=== PATIENT | female | born 1960 | race Caucasian/White ===

== ENCOUNTER → 2016-06-18 | Outpatient (CLI) | payer OTHER ==
[~2016-06-18] MED LIST: ATEN50TA2 PO; CHLO0.124 MT; FLUC150T PO
[2016-06-18 11:10] LABS: BASO % 0.7 % (0.0-1.0); EOS # 0.1 K/mm3 (0.0-0.50); EOS % 3.7 % (0.0-3.0); LYMPH % 29.2 % (24.0-44.0); MEAN CORPUSCULAR HEMOGLOBIN 29.1 pg (27.0-33.0); MEAN CORPUSCULAR HGB CONC 33.7 g/dl (32.0-36.5); MEAN CORPUSCULAR VOLUME 86.4 fl (80.0-96.0); MONO # 0.2 K/mm3 (0.0-0.8); MONO % 6.2 % (0.0-5.0); NEUTROPHILS # 1.9 K/mm3 (1.8-7.7); NEUTROPHILS % 57.1 % (36.0-66.0); RED CELL DISTRIBUTION WIDTH 12.6 % (11.5-14.5); WHITE BLOOD COUNT 3.4 K/mm3 (4.0-10.0)
[2016-06-18 11:31] LABS: ALBUMIN 3.8 GM/DL (3.2-5.2); ALBUMIN/GLOBULIN RATIO 1.06 (1.00-1.93); ALKALINE PHOSPHATASE 74 U/L (45-117); ALT/SGPT 29 U/L (12-78); ANION GAP 8 MEQ/L (8-16); AST/SGOT 21 U/L (15-37); BILIRUBIN,TOTAL 0.7 MG/DL (0.2-1.0); BLOOD UREA NITROGEN 16 MG/DL (7-18); CALCIUM LEVEL 9.1 MG/DL (8.5-10.1); CARBON DIOXIDE LEVEL 30 MEQ/L (21-32); CHLORIDE LEVEL 103 MEQ/L (98-107); CHOLESTEROL LEVEL 191 MG/DL (<200); CREATININE FOR GFR 0.89 MG/DL (0.55-1.02); GLOMERULAR FILTRATION RATE > 60.0 (>51); GLUCOSE, FASTING 90 MG/DL (70-105); POTASSIUM SERUM 4.3 MEQ/L (3.5-5.1); SODIUM LEVEL 141 MEQ/L (136-145); TOTAL PROTEIN 7.4 GM/DL (6.4-8.2); TRIGLYCERIDES LEVEL 70 MG/DL (<150)
== END ==
LOC: M LAB 10:37
PROVIDERS: ATTEND Nurse Practitioner Adult Health
DX: Z51.81 Encounter for therapeutic drug level monitoring (principal); Z79.899 Other long term (current) drug therapy; E55.9 Vitamin D deficiency, unspecified; I97.3 Postprocedural hypertension

== ENCOUNTER → 2016-06-23 | Outpatient (CLI) | payer OTHER ==
--- NOTE | 2016-06-23 12:30 | REPMRS ---
Patient History The patient states she had a clinical breast exam in 05/2016. Patient is postmenopausal and had first child at age 29. Family history of prostate cancer in father at age 50 or over. Took hormonal contraceptives for 10 years. Digital Woman Screen Mammo: June 23, 2016 - Exam #: [id number] Bilateral CC and MLO view(s) were taken. Technologist: Hilary Ghosh, Technologist Prior study comparison: June 17, 2015, digital woman screen mammo performed at [facility]. June 16, 2014, digital woman screen mammo performed at [facility] [place] [facility]. August 24, 2011, bilateral bilat screen digital mammo, performed at [facility] ([facility]). FINDINGS: There are scattered fibroglandular densities. There has been no change in the appearance of the mammogram from the prior studies. There is a mild amount of scattered fibroglandular density which is fairly symmetric. There is no interval development of dominant mass, architectural distortion, or clustered microcalcification suggestive of malignancy. ASSESSMENT: BI-RADS/ACR category 1 mammogram. Negative. Recommendation Routine screening mammogram in 1 year (for women over age 40). This mammogram was interpreted with the aid of an FDA-approved computer-aided dectection system. Electronically Signed By: Fermin Rosales MD 06/23/16 [id number]
== END ==
LOC: M WHC 09:59
PROVIDERS: ATTEND Obstetrics & Gynecology
DX: Z12.31 Encounter for screening mammogram for malignant neoplasm of breast (principal); Z79.3 Long term (current) use of hormonal contraceptives

== ENCOUNTER → 2016-09-09 | Outpatient (REF) | payer OTHER | LOC: M LAB REF 15:41 | PROVIDERS: ATTEND Physician Assistant | DX: J10.1 Influenza due to other identified influenza virus with other respiratory manifestations (principal) ==

== ENCOUNTER → 2017-06-23 | Outpatient (CLI) | payer OTHER | LOC: M WHC 11:13 | DX: Z12.39 Encounter for other screening for malignant neoplasm of breast (principal) | CPT/HCPCS: 77067 ==

== ENCOUNTER 2018-06-16 08:05 | Emergency (ER) | payer OTHER ==
[~2018-06-16] VITALS: Ht 167.6 cm; Wt 230.0 kg
[2018-06-16 09:12] LABS: BASO % 0.6 % (0.0-1.0); EOS % 0.6 % (0.0-3.0); HEMATOCRIT 39.9 % (36.0-47.0); HEMOGLOBIN 13.1 g/dl (12.0-15.5); LYMPH # 0.8 10^3/uL (1.5-4.5); LYMPH % 17.5 % (24.0-44.0); MEAN CORPUSCULAR HEMOGLOBIN 29.3 pg (27.0-33.0); MEAN CORPUSCULAR HGB CONC 32.8 g/dl (32.0-36.5); MEAN CORPUSCULAR VOLUME 89.3 fl (80.0-96.0); MONO # 0.2 10^3/uL (0.0-0.8); MONO % 5.1 % (0.0-5.0); NEUTROPHILS # 3.6 10^3/uL (1.8-7.7); NEUTROPHILS % 75.8 % (36.0-66.0); PLATELET COUNT, AUTOMATED 252 10^3/uL (150-450); RED BLOOD COUNT 4.47 10^6/uL (4.00-5.40); WHITE BLOOD COUNT 4.7 10^3/uL (4.0-10.0)
[2018-06-16 09:33] LABS: ALBUMIN 3.8 GM/DL (3.2-5.2); ALT/SGPT 32 U/L (12-78); AMYLASE 35 U/L (25-115); BILIRUBIN,TOTAL 0.5 MG/DL (0.2-1.0); BLOOD UREA NITROGEN 12 MG/DL (7-18); CARBON DIOXIDE LEVEL 26 MEQ/L (21-32); CHLORIDE LEVEL 107 MEQ/L (98-107); CREATININE FOR GFR 0.77 MG/DL (0.55-1.30); GAMMA GLUTAMYLTRANSPEPTIDASE 61 U/L (5-55); GLOMERULAR FILTRATION RATE > 60.0 (>45); GLUCOSE, FASTING 99 MG/DL (70-100); LIPASE 76 U/L (73-393); POTASSIUM SERUM 3.7 MEQ/L (3.5-5.1); SODIUM LEVEL 141 MEQ/L (136-145); TOTAL PROTEIN 7.2 GM/DL (6.4-8.2)
[2018-06-16] MEDS ORDERED: DICY20TA11 PO (09:52)
[2018-06-16] MEDS ORDERED: SIME80TA PO (09:52)
[2018-06-16 10:11] VITALS: BP 159/89
== END 2018-06-16 10:11 | disposition home or self-care (01) ==
LOC: M ED 08:05
DX: R10.30 Lower abdominal pain, unspecified (principal); R14.3 Flatulence; I10 Essential (primary) hypertension; Z79.899 Other long term (current) drug therapy

== ENCOUNTER → 2018-06-27 | Outpatient (CLI) | payer OTHER ==
[~2018-06-27] MED LIST changes: +DICY20TA11 PO; +SIME80TA PO
--- NOTE | 2018-06-27 12:16 | REP ---
BILATERAL MAMMOGRAM WITH 3D TOMOSYNTHESIS: Bilateral mammogram performed with 3D tomosynthesis. Comparison is made with a prior study of . Tyrer-zick lifetime risk of breast cancer 9.7%. Mild scattered fibroglandular tissue is again seen bilaterally. There does appear to be a new well circumscribed nodule in the anterior right breast, upper outer quadrant, measuring about 9 mm in maximum diameter. A similar appearing, well circumscribed nodule is seen in the anterior left breast at about 6-o'clock position measuring about 7 mm in maximum diameter. No other mass or clustered microcalcifications are seen. IMPRESSION: A well-circumscribed nodule is seen in each breast anteriorly, not seen on prior studies. Recommend bilateral spot compression views and ultrasound to further evaluate. BIRADS 0: BI-RADS/ACR category 0 mammogram, Incomplete. Need additional imaging evaluation and/or prior mammograms for comparison. This mammogram was interpreted with the aid of an FDA-approved computer-aided detection system. A. Negative x-ray reports should not delay biopsy if a dominant or clinically suspicious mass is present. B. Four to eight percent of cancers are not identified by x-ray. C. Adenosis and dense breasts may obscure an underlying neoplasm. The patient states she/he had a clinical breast exam in May 2018. The patient letter being requested is M0
== END ==
LOC: M WHC 10:28
PROVIDERS: ATTEND Obstetrics & Gynecology
DX: Z12.31 Encounter for screening mammogram for malignant neoplasm of breast (principal); R92.8 Other abnormal and inconclusive findings on diagnostic imaging of breast

== ENCOUNTER → 2018-06-29 | Outpatient (CLI) | payer OTHER ==
--- NOTE | 2018-06-29 12:06 | REP ---
BILATERAL DIAGNOSTIC MAMMOGRAM WITH BILATERAL BREAST ULTRASOUND: Bilateral spot compression views performed and correlated with recent mammogram of 06/27/2018. These confirm the presence of a well circumscribed nodule in the right breast at about the 9 o'clock position measuring about 9 mm in maximum diameter, and another well circumscribed nodule in the left breast at about 6 o'clock meauring approximately 7 mm in maximum diameter. Real-time sonographic evaluation of the bilateral breasts performed. In the right breast at 3 o'clock there is a cyst corresponding to the mammographic abnormality measuring 8 x 4 x 6 mm. At 10 o'clock there is a tiny intramammary lymph node 4 x 3 x 5 mm. In the left breast at 6 o'clock there is a cyst measuring 6 mm in maximum diameter. IMPRESSION: BIRADS 2: BI-RADS/ACR category 2 mammogram. Benign Findings. Well circumscribed nodule confirmed in each breast as discussed in detail above. Both of these correspond to benign cysts by ultrasound. Recommend followup mammogram in 1 year. The patient letter being requested is M1. Electronically Signed by Umberto Crooks MD 06/29/2018 12:27 P
== END ==
LOC: M RAD 10:30
PROVIDERS: ATTEND Obstetrics & Gynecology
DX: R92.2 Inconclusive mammogram (principal)

== ENCOUNTER → 2018-07-04 | Outpatient (CLI) | payer OTHER ==
--- NOTE | 2018-07-04 18:44 | REP ---
Upper GI air contrast The procedure was performed under the direct supervision of Dr. Rosales. The images were reviewed with Dr. Rosales The stereo equipment repairer film shows no organomegaly or pathological masses. The intestinal gas pattern is non-specific. Liquid barium and gas producing crystals were given in the erect position as well as liquid barium in the prone oblique position in order to perform a double contrast upper GI examination. The oral and pharyngeal stages of deglutition are unremarkable. During esophageal transport there are tertiary waves demonstrated. There is no esophagitis stricture mucosal ring or hiatal hernia. There is gastroesophageal reflux demonstrated to above the level of the [place]. The stomach frenhc are normally outlined . The rugal folds are smooth and regular. There is no gastritis neoplasm or ulcer disease. The duodenal french are normally outlined . The mucosal folds are smooth and regular. There is no duodenitis pancreatitis peptic ulcer disease or neoplasm. The visualized portion of the proximal small bowel appears normal in course and caliber. Impression: 1. Tertiary waves. 2. There is gastroesophageal reflux demonstrated to above the level of the [place]. 0.5 minutes of fluoro time was utilized for this procedure. Reviewed by YADY Win 07/04/2018 04:49 P Electronically Signed by Jose F Rosales MD 07/04/2018 06:35 P
--- NOTE | 2018-07-04 20:01 | REP ---
Clinical: Chronic cholecystitis. Technique: Real time lieberman scale ultrasound examination using curved array transducer. Findings: Gallbladder demonstrates tumefactive sludge without wall thickening, pericholecystic fluid, or sonographic Bruner's sign. No biliary ductal dilatation is appreciated and the common bile duct measures 4.0 mm diameter. Liver and pancreas are normal in contour, size, echogenicity without focal hepatic or pancreatic lesion identified. Right kidney is normal in reniform shape without hydronephrosis and measures 10.1 x 4.4 x 4.3 cm. No ascites. Impression: 1. Cholelithiasis with tumefactive sludge. No current sonographic evidence to suggest acute cholecystitis. Electronically Signed by Bc Calles MD 07/04/2018 07:53 P
== END ==
LOC: M RAD 10:15
PROVIDERS: ATTEND Nurse Practitioner Adult Health
DX: K81.1 Chronic cholecystitis (principal); K21.9 Gastro-esophageal reflux disease without esophagitis

== ENCOUNTER → 2018-07-04 | Outpatient (CLI) | payer OTHER ==
[~2018-07-04] MED LIST changes: +CALC1TAB26 PO; +E-Z-GAS II EFFERVESCENT PACKET (SODIUM BICARB./CITRIC ACID/SIMETHICONE) As Ordered ONE; +E-Z-HD 98% w/w 340GM SUSP BTL As Ordered ONE; +E-Z-PAQUE 96% w/w SUSP 176GM BTL As Ordered ONE; +MULTCAP PO; +OMEG1CAP16 PO; +VITA1TAB23 PO
== END ==
LOC: M RAD 10:30
PROVIDERS: ATTEND Physician Assistant Medical
DX: R10.13 Epigastric pain (principal)

== ENCOUNTER → 2018-07-04 | Outpatient (CLI) | payer OTHER ==
[~2018-07-04] MED LIST changes: -CALC1TAB26 PO; -E-Z-GAS II EFFERVESCENT PACKET (SODIUM BICARB./CITRIC ACID/SIMETHICONE) As Ordered ONE; -E-Z-HD 98% w/w 340GM SUSP BTL As Ordered ONE; -E-Z-PAQUE 96% w/w SUSP 176GM BTL As Ordered ONE; -MULTCAP PO; -OMEG1CAP16 PO; -VITA1TAB23 PO
== END ==
LOC: M RAD 10:03
PROVIDERS: ATTEND Physician Assistant Medical
DX: R10.13 Epigastric pain (principal)

== ENCOUNTER → 2018-08-07 | Outpatient (CLI) | payer OTHER ==
[~2018-08-07] MED LIST changes: +CALC1TAB26 PO; +MULTCAP PO; +OMEG1CAP16 PO; +VITA1TAB23 PO
--- NOTE | 2018-08-08 04:07 | REP ---
Clinical: Preoperative assessment . Comparison: None . Technique: PA and lateral. Findings: The mediastinum and cardiac silhouette are normal. Airway is patent and midline. The lung robles suggest emphysematous changes without acute consolidation, effusion, or pneumothorax. The skeletal structures are intact and normal. Impression: 1. No acute cardiopulmonary process. Electronically Signed by Bc Calles MD 08/08/2018 04:00 A
== END ==
LOC: M WUC 17:44
PROVIDERS: ATTEND Nurse Practitioner Adult Health
DX: Z01.811 Encounter for preprocedural respiratory examination (principal); Z01.818 Encounter for other preprocedural examination

== ENCOUNTER 2018-08-24 07:56 | Day surgery (SDC) | payer OTHER ==
[~2018-08-24] VITALS: Ht 165.1 cm; Wt 98.9 kg
[2018-08-24] MEDS ORDERED: fentaNYL 100 MCG/2 ML INJECTION (J3010) As Ordered ONE (08:49)
[2018-08-24] MEDS ORDERED: ROCURONIUM BROMIDE 50 MG/5 ML VIAL As Ordered ONE (08:49)
[2018-08-24] MEDS ORDERED: LIDOCAINE 2% INJ 100 MG/5 ML SDV (FOR ANES.) As Ordered ONE (08:49)
[2018-08-24] MEDS ORDERED: dexameTHASONE 4 MG/ML 1ML VIAL (J1100) As Ordered ONE (08:49)
[2018-08-24] MEDS ORDERED: PROPOFOL 200 MG/20 ML VIAL As Ordered ONE (08:49)
[2018-08-24] MEDS ORDERED: ONDANSETRON 4MG/2ML VIAL (J2405) As Ordered ONE (08:49)
[2018-08-24] MEDS ORDERED: NEOSTIGMINE 10 MG/10 ML VIAL (J2710) As Ordered ONE (08:49)
[2018-08-24] MEDS ORDERED: MIDAZOLAM INJ 2 MG/2 ML VIAL (J2250) As Ordered ONE (08:49)
[2018-08-24] MEDS ORDERED: GLYCOPYRROLATE INJ 0.2 MG/ML 2 ML VIAL As Ordered ONE (08:49)
[2018-08-24] MEDS ORDERED: BUPIVACAINE/EPIN 0.25% 30 ML VIAL As Ordered ONE (09:55)
[2018-08-24] MEDS: fentaNYL 100 MCG/2 ML INJECTION (J3010) IV PRN ×4 (11:15→11:30)
[2018-08-24] MEDS ORDERED: LR 1,000 ML IV SCH (11:15)
[2018-08-24] MEDS ORDERED: NORCO, ANEXSIA 5/325MG TABLET (HYDROcodone/ACETAMINOPHEN) PO PRN (11:15)
[2018-08-24] MEDS: NORCO, ANEXSIA 5/325MG TABLET (HYDROcodone/ACETAMINOPHEN) PO PRN ×2 (11:15→12:00)
[2018-08-24] MEDS ORDERED: ONDANSETRON 4MG/2ML VIAL (J2405) IV PRN (11:15)
[2018-08-24] MEDS ORDERED: KETOROLAC 30 MG/ML VIAL (J1885) As Ordered ONE (12:22)
[2018-08-24] MEDS ORDERED: KETOROLAC 30 MG/ML VIAL (J1885) IV PRN (12:30)
[2018-08-24 14:10] VITALS: BP 137/70
--- NOTE | 2018-08-27 11:58 | RO ---
DATE OF PROCEDURE: 08/24/2018 PREOPERATIVE DIAGNOSIS: Symptomatic cholelithiasis. POSTOPERATIVE DIAGNOSIS: Symptomatic cholelithiasis. PROCEDURE: Laparoscopic cholecystectomy. SURGEON: Dr. Cooley COOK APPRENTICE PASTRY: None. ANESTHESIA: General. ESTIMATED BLOOD LOSS: 5. COMPLICATIONS: None. INDICATIONS FOR PROCEDURE: The patient is a 58-year-old female who presents with persistent right upper quadrant abdominal pain and found to have symptomatic cholelithiasis. Recommendation was to proceed laparoscopic, possible open cholecystectomy. Risks and benefits of the procedure not limited but including bleeding, infection, hernia formation, damage to surrounding structures, need for further surgery were discussed in detail with the patient, informed was obtained, and the procedure was planned. DESCRIPTION OF PROCEDURE: The patient was brought to operating room #3. After sufficient sedation, the abdomen was sterilely prepped and draped. Next, a time-out was done to confirm proper patient and proper procedure. Following that, a stab incision was made in the left lower quadrant, Veress needle was inserted and the abdomen was insufflated to 15 mmHg. Next, a 5 mm supraumbilical midline incision was made, 5 mm Optiview port was used to gain access to the abdomen. Once the abdomen was entered, Veress needle site was examined. There were no signs of any injury. Veress needle was removed. 11 mm port placed subxiphoid and two 5 mm ports were then placed in the right upper quadrant. The fundus of the gallbladder was elevated up towards his right shoulder. Cystic duct and cystic artery were carefully dissected free using a combination of blunt and sharp dissection, once they were both clearly identified, they were both doubly clipped and cut. The gallbladder was then removed from the gallbladder fossa using electrocautery and taken out intact. It was then placed in a 10 mm EndoCatch bag, brought out through the subxiphoid port site. Once it was removed the abdomen, the abdomen was desufflated. Skin incision was closed with 4-0 Vicryl subcuticular sutures. The head was cleaned and dried. Steri-Strips, 4x4 and tape were applied, thus ending procedure. EXAMINATION REPORT Patient and sent tape of ariel nnamdi [facility] q.a.c. for 59 and [place] [id number] PREOPERATIVE DIAGNOSIS Symptomatic cholelithiasis. POSTOPERATIVE DIAGNOSIS Same PROCEDURE Laparoscopic cholecystectomy. SURGEON Dr. Cooley assist none. ANESTHESIA General: ESTIMATED BLOOD LOSS Five COMPLICATIONS None. INDICATIONS FOR PROCEDURE The patient 4-year-old female who presents with persistent right upper quadrant abdominal pain found have symptomatic cholelithiasis. Recommendation was to proceed laparoscopic possible open cholecystectomy. Risks and the procedure not limited but including bleeding, infection, hernia formation, damage to surrounding structures, need for further surgery discussed in detail with the patient formed was obtained procedure was planned. PROCEDURE The patient brought to operating room. Three after sufficient sedation and was sterilely prepped and draped. Next time-out was done to firm proper patient proper procedure. Following that stab incision in left lower quadrant Veress needle was inserted and was insufflated 2 mmHg. Next Veress needle was room first of next a 5 mm supraumbilical midline incision made 5 mm q. port was used to gain access the abdomen. Once abdomen was entered, Veress needle site was examined. No signs of any injury. Veress needle was removed 11 mm port placed subxiphoid to five ports were then placed our upper quadrant fundus of gallbladder was elevated up towards the right shoulder cystic duct and cystic artery were carefully dissected free using combination of blunt sharp dissection once they are both clearly identified they are both doubly clipped and cut gallbladder was removed from gallbladder fossa electrocautery and taken out intact as then placed 10 mm EndoCatch bag brought out through the subxiphoid port site. Once it was removed the abdomen. The abdomen was desufflated. Skin incision closed 4-0 Vicryl subcuticular sutures. The head was cleaned and dried. Steri-Strips 4x4 and tape were applied thus ending procedure. Dictation
== END 2018-08-24 14:39 | disposition home or self-care (01) ==
LOC: M SDC 07:56
PROVIDERS: ATTEND Surgery
DX: K80.18 Calculus of gallbladder with other cholecystitis without obstruction (principal); I10 Essential (primary) hypertension; E78.5 Hyperlipidemia, unspecified; Z79.899 Other long term (current) drug therapy
CPT/HCPCS: 47562; 88304; J1100; J1885; J2250; J2405; J2710; J3010

== ENCOUNTER → 2019-02-19 | Outpatient (CLI) | payer OTHER ==
--- NOTE | 2019-02-19 11:07 | REP ---
Right lower extremity deep vein duplex ultrasound: The deep veins demonstrate normal compression, normal Doppler color flow and normal Doppler waveforms with respiration and augmentation from the popliteal vein to the common femoral vein. There is a 2.4 x 1.4 mass with a vascular hilus in the right inguinal area, likely a right inguinal node. Impression: There is no deep vein thrombus. 2.4 x 1.4 of right inguinal node. Electronically Signed by Umberto Scott MD 02/19/2019 10:59 A
== END ==
LOC: M RAD 10:16
PROVIDERS: ATTEND Physician Assistant Medical
DX: R22.41 Localized swelling, mass and lump, right lower limb (principal)

== ENCOUNTER → 2019-07-02 | Outpatient (CLI) | payer OTHER ==
--- NOTE | 2019-07-02 12:03 | REP ---
BILATERAL SCREENING DIGITAL MAMMOGRAM WITH 3D TOMOSYNTHESIS: There are no palpable abnormalities or other breast complaints. The the patient states she had a clinical breast examination May,. The The Tyrer-zi Lifetime Breast Cancer Risk Score is: 9.3%. . Comparisons are the 08/24/2011, 06/16/2014, 06/23/2016, 06/23/2017 and 06/27/2018. There are scattered areas of fibroglandular density. There is a 16 mm nodule in the right breast subareolar zone and there is a 15 mm nodule in the left breast subareolar zone. On the most recent prior study dated 06/29/2018 there was a 9 mm nodule in the right breast in this location and a 7 mm nodule in the left breast in this location. On the bilateral breast ultrasound performed on 06/29/2018 these nodular densities correspond due to cysts. They appear to have increased in size on the current study. However, as a precaution, because of the size increase, I would recommend follow-up ultrasound for assurance that these again represent cysts. There is a stable small intramammary lymph node in the upper outer quadrant of the right breast unchanged from all prior studies. There are no additional findings on 3D tomosynthesiss. Impression: BIRADS/ACR category 0 mammogram. Incomplete. Need additional imaging evaluation and / or prior mammograms for comparison. Recommendation: Recommend the patient return for bilateral breast ultrasound to confirm enlarging cysts in the retroareolar zone of each breast. This mammogram was interpreted with the aid of a FDA approved computer-aided detection system. A. Negative mammogram reports should not delay biopsy if a dominant or clinically suspicious mass is present. B. Not all breast cancers are identified by mammography or tomosynthesis. C. Adenosis and dense breasts may obscure an underlying neoplasm. Patient letter M0. Electronically Signed by Umberto Scott MD 07/02/2019 11:54 A
== END ==
LOC: M WHC 10:05
PROVIDERS: ATTEND Obstetrics & Gynecology
DX: Z12.31 Encounter for screening mammogram for malignant neoplasm of breast (principal); N63.42 Unspecified lump in left breast, subareolar; N63.41 Unspecified lump in right breast, subareolar

== ENCOUNTER → 2019-07-17 | Outpatient (CLI) | payer OTHER ==
--- NOTE | 2019-07-17 13:31 | REP ---
Bilateral retroareolar breast sonography: History: Screening mammography July 02, 2019 was BIRADS category 0 because of nodular densities in the retroareolar regions bilaterally. Previous sonography, June 29, 2018 showed cysts which were felt to correspond mammographically visible subareolar nodular densities. These are felt to be a little larger mammographically and repeat sonography was recommended. Sonographic findings: The right breast at 9 o'clock there is a 1.2 x 1.3 x 0.7 cm simple cyst 2.3 cm from the nipple. In the left breast at 6 o'clock there is a 1.1 x 1.1 x 0.5 cm cyst located 1.3 cm from the nipple. These are felt to account for the current mammographic opacities. No sonographically suspicious finding. Impression: BIRADS category 2 benign findings. Repeat screening mammography recommended 1 year. Electronically Signed by Jose F Rosales MD 07/17/2019 04:27 P
== END ==
LOC: M RAD 10:37
PROVIDERS: ATTEND Obstetrics & Gynecology
DX: N60.01 Solitary cyst of right breast (principal); N60.02 Solitary cyst of left breast

== ENCOUNTER 2019-12-11 07:39 | Emergency (ER) | payer OTHER ==
[~2019-12-11] VITALS: Ht 165.1 cm; Wt 112.5 kg
[2019-12-11] MEDS ORDERED: DOXY-350 PO (07:45)
[2019-12-11 08:50] LABS: BASO % 0.6 % (0.0-1.0); EOS # 0.1 10^3/uL (0.0-0.5); EOS % 1.1 % (0.0-3.0); HEMATOCRIT 40.6 % (36.0-47.0); HEMOGLOBIN 13.3 g/dl (12.0-15.5); LYMPH # 0.9 10^3/uL (1.5-5.0); LYMPH % 16.8 % (24.0-44.0); MEAN CORPUSCULAR HEMOGLOBIN 29.2 pg (27.0-33.0); MEAN CORPUSCULAR HGB CONC 32.8 g/dl (32.0-36.5); MEAN CORPUSCULAR VOLUME 89.2 fl (80.0-96.0); MONO # 0.3 10^3/uL (0.0-0.8); MONO % 5.8 % (0.0-5.0); NEUTROPHILS % 75.1 % (36.0-66.0); PLATELET COUNT, AUTOMATED 225 10^3/uL (150-450); RED BLOOD COUNT 4.55 10^6/uL (4.00-5.40); WHITE BLOOD COUNT 5.3 10^3/uL (4.0-10.0)
[2019-12-11 09:22] LABS: CK-MB VALUE MASS 1.1 NG/ML (<3.6); CPK CREATINE PHOSPHOKINASE 92 U/L (26-192); IRON (FE) 117 UG/DL (50-170); MAGNESIUM LEVEL 2.1 MG/DL (1.8-2.4); PERCENT SATURATION 30.6 % (13.2-45.0); TOTAL IRON BINDING CAPACITY 382 UG/DL (250-450)
[2019-12-11 09:33] LABS: MONO REFLEX EBV COMP POSITIVE (NEGATIVE)
[2019-12-11 10:07] VITALS: BP 155/90
[2019-12-11 11:08] LABS: VITAMIN B12 LEVEL 1038 PG/ML (247-911)
[2019-12-12 18:09] LABS: Lyme Disease IgG/IgM Antibodie <0.91 ISR (0.00-0.90); Lyme Disease IgM Ab Quantitati <0.80 index (0.00-0.79)
== END 2019-12-11 10:09 | disposition home or self-care (01) ==
LOC: M ED 07:39
DX: B27.90 Infectious mononucleosis, unspecified without complication (principal); I10 Essential (primary) hypertension; A69.20 Lyme disease, unspecified; Z79.899 Other long term (current) drug therapy

== ENCOUNTER → 2021-01-12 | Outpatient (CLI) | payer OTHER ==
[~2021-01-12] MED LIST changes: +DOXY-350 PO; +SIME80CH5 PO; -SIME80TA PO; -VITA1TAB23 PO; +VITA250T26 PO
--- NOTE | 2021-01-14 14:33 | REP ---
INDICATION: Z12.31 SCREENING MAMMO. COMPARISON: Multiple TECHNIQUE: Digital screening mammography was carried out bilaterally in the CC and MLO projections using both 2D and 3D modalities and compared to the prior exams. By history, the patient has no complaints of a palpable breast abnormality or other significant breast complaints. FINDINGS: The breasts are unchanged in size and shape. In the left breast outer aspect near the 3 o'clock position there is a oren density with partially obscured margins. There is an additional smoothly marginated left breast density which is unchanged and was previously sonographically evaluated and seen to be a simple cyst. No other suspicious features are seen in either breast. The Volpara volumetric breast density pattern is b. IMPRESSION: BIRADS/ACR category 0 mammogram. Left breast oren density as described above and for which diagnostic digital DBT spot compression views are recommended in the CC and MLO projections along with diagnostic ultrasonography if indicated. This patient's Tyrer-Cuzick lifetime breast cancer risk assessment score is 9%. This mammogram was interpreted with the aid of an FDA-approved computer-aided detection system. The patient states she had a clinical breast exam in June 2020. The patient letter being requested is M0. RECOMMENDATION: As above <Electronically signed by Jason Castro > 01/14/21 [id number]
== END ==
LOC: M WHC 11:42
PROVIDERS: ATTEND Obstetrics & Gynecology
DX: R92.2 Inconclusive mammogram (principal); N63.21 Unspecified lump in the left breast, upper outer quadrant

== ENCOUNTER → 2021-02-09 | Outpatient (CLI) | payer OTHER ==
--- NOTE | 2021-02-09 13:45 | REP ---
INDICATION: LEFT BREAST ADD VIEWS. COMPARISON: Multiple the latest 01/12/2021 which showed a oren density in the left breast near the 3 o'clock position. TECHNIQUE: Diagnostic digital magnified and DBT spot compression views were obtained along with diagnostic ultrasonography left breast region of interest at 3 o'clock . FINDINGS: The left breast density seen at the 3 o'clock position persists on the spot compression views. Diagnostic ultrasonography was obtained using anatomical intelligence and shear wave elastography. At the 3 o'clock position there is an oval-shaped 1.3 x 0.6 x 1 cm sized anechoic structure which exhibits posterior wall enhancement and increased through transmission. Shear wave elastography shows very low KPA values. IMPRESSION: BIRADS/ACR category 2 benign findings. There is a simple cyst in the left breast at 3 o'clock as described above. The patient letter being requested is M1. RECOMMENDATION: Repeat screening mammography recommended 1 year (for women over 40). <Electronically signed by Jason Castro > 02/09/21 [id number]
== END ==
LOC: M WHC 12:19
PROVIDERS: ATTEND Obstetrics & Gynecology
DX: N60.02 Solitary cyst of left breast (principal)
CPT/HCPCS: 76642; 77065; G0279

== ENCOUNTER → 2022-02-22 | Outpatient (CLI) | payer OTHER ==
[~2022-02-22] MED LIST changes: -DICY20TA11 PO; +DICY20TA20 PO; -FLUC150T PO; +FLUC150T9 PO
== END ==
LOC: M WHC 11:13
PROVIDERS: ATTEND Obstetrics & Gynecology
DX: Z12.31 Encounter for screening mammogram for malignant neoplasm of breast (principal)

== ENCOUNTER → 2022-08-27 | Outpatient (CLI) | payer OTHER ==
[~2022-08-27] MED LIST changes: -DOXY-350 PO; +DOXY-444 PO
[2022-08-27 09:38] LABS: BASO % 0.7 % (0.0-1.0); EOS # 0.2 10^3/uL (0.0-0.5); EOS % 4.6 % (0.0-3.0); HEMATOCRIT 43.6 % (36.0-47.0); HEMOGLOBIN 14.1 g/dl (12.0-15.5); LYMPH # 1.2 10^3/uL (1.5-5.0); LYMPH % 29.6 % (24.0-44.0); MEAN CORPUSCULAR HEMOGLOBIN 28.9 pg (27.0-33.0); MEAN CORPUSCULAR HGB CONC 32.3 g/dl (32.0-36.5); MEAN CORPUSCULAR VOLUME 89.3 fl (80.0-96.0); MONO # 0.4 10^3/uL (0.0-0.8); MONO % 9.3 % (2.0-8.0); NEUTROPHILS # 2.3 10^3/uL (1.5-8.5); NEUTROPHILS % 55.8 % (36.0-66.0); PLATELET COUNT, AUTOMATED 224 10^3/uL (150-450); RED BLOOD COUNT 4.88 10^6/uL (4.00-5.40); WHITE BLOOD COUNT 4.1 10^3/uL (4.0-10.0)
[2022-08-27 09:50] LABS: HEMOGLOBIN A1c 5.4 % (4.0-6.0)
[2022-08-27 10:07] LABS: ALBUMIN 3.7 G/DL (3.2-5.2); ALKALINE PHOSPHATASE 79 U/L (46-116); ALT/SGPT 37 U/L (7.0-40); AST/SGOT 26 U/L (<34); BILIRUBIN,TOTAL 1.1 MG/DL (0.3-1.2); BLOOD UREA NITROGEN 14 MG/DL (9-23); CALCIUM LEVEL 10.1 MG/DL (8.3-10.6); CARBON DIOXIDE LEVEL 28 MMOL/L (20-31); CHLORIDE LEVEL 103 MMOL/L (98-107); CHOLESTEROL LEVEL 170 MG/DL (<200); CHOLESTEROL RISK RATIO 3.22 (<5); CREATININE FOR GFR 0.82 MG/DL (0.55-1.30); GLOMERULAR FILTRATION RATE > 60.0 (>45); GLUCOSE, FASTING 93 MG/DL (74-106); HDL CHOLESTEROL 52.7 MG/DL (>40); LDL CHOLESTEROL 101.9 MG/DL (<100); NON-HDL-C 117.3 MG/DL; POTASSIUM SERUM 4.4 MMOL/L (3.5-5.1); SODIUM LEVEL 136 MMOL/L (136-145); THYROID STIMULATING HORMONE 2.553 uIU/ML (0.55-4.78); TOTAL 25(OH) VITAMIN D 47.6 NG/ML (20.0-100.0); TOTAL PROTEIN 6.8 G/DL (5.7-8.2); TRIGLYCERIDES LEVEL 77 MG/DL (<150)
== END ==
LOC: M LAB 09:03
PROVIDERS: ATTEND Nurse Practitioner Family
DX: E78.00 Pure hypercholesterolemia, unspecified (principal); I10 Essential (primary) hypertension; E55.9 Vitamin D deficiency, unspecified; Z79.899 Other long term (current) drug therapy

== ENCOUNTER → 2023-06-08 | Outpatient (CLI) | payer MEDICARE | LOC: M WHC 10:28 | PROVIDERS: ATTEND Obstetrics & Gynecology | DX: Z12.31 Encounter for screening mammogram for malignant neoplasm of breast (principal); R92.8 Other abnormal and inconclusive findings on diagnostic imaging of breast ==

== ENCOUNTER → 2023-06-22 | Outpatient (CLI) | payer MEDICARE | LOC: M WHC 10:09 | PROVIDERS: ATTEND Obstetrics & Gynecology | DX: R92.8 Other abnormal and inconclusive findings on diagnostic imaging of breast (principal); N60.12 Diffuse cystic mastopathy of left breast ==

== ENCOUNTER → 2024-03-11 | Outpatient (CLI) | payer MEDICARE ==
[~2024-03-11] MED LIST changes: +DOXY-440 PO; -DOXY-444 PO
[2024-03-11 11:39] LABS: HEMATOCRIT 42.3 % (36.0-47.0); HEMOGLOBIN 13.7 g/dl (12.0-15.5); MEAN CORPUSCULAR HEMOGLOBIN 29.3 pg (27.0-33.0); MEAN CORPUSCULAR HGB CONC 32.4 g/dl (32.0-36.5); MEAN CORPUSCULAR VOLUME 90.4 fl (80.0-96.0); PLATELET COUNT, AUTOMATED 275 10^3/uL (150-450); RED BLOOD COUNT 4.68 10^6/uL (4.00-5.40); WHITE BLOOD COUNT 4.6 10^3/uL (4.0-10.0)
[2024-03-11 12:03] LABS: ALBUMIN 3.6 G/DL (3.2-5.2); ALKALINE PHOSPHATASE 89 U/L (46-116); ALT/SGPT 27 U/L (7.0-40); AST/SGOT 20 U/L (<34); BILIRUBIN,TOTAL 0.9 MG/DL (0.3-1.2); BLOOD UREA NITROGEN 11 MG/DL (9-23); CALCIUM LEVEL 9.9 MG/DL (8.3-10.6); CARBON DIOXIDE LEVEL 30 MMOL/L (20-31); CHLORIDE LEVEL 106 MMOL/L (98-107); CHOLESTEROL LEVEL 190 MG/DL (<200); CREATININE FOR GFR 0.77 MG/DL (0.55-1.30); GLOMERULAR FILTRATION RATE > 60.0 (>45); GLUCOSE, FASTING 92 MG/DL (74-106); HDL CHOLESTEROL 51.3 MG/DL (>40); LDL CHOLESTEROL 118.9 MG/DL (<100); NON-HDL-C 138.7 MG/DL; POTASSIUM SERUM 4.4 MMOL/L (3.5-5.1); SODIUM LEVEL 140 MMOL/L (136-145); TOTAL PROTEIN 7.2 G/DL (5.7-8.2); TRIGLYCERIDES LEVEL 99 MG/DL (<150)
== END ==
LOC: M PLALAB 08:41
PROVIDERS: ATTEND Registered Nurse
DX: I10 Essential (primary) hypertension (principal); E78.00 Pure hypercholesterolemia, unspecified; E55.9 Vitamin D deficiency, unspecified

== ENCOUNTER → 2024-11-27 | Outpatient (REF) | payer MEDICARE ==
[2024-11-27 12:17] LABS: BASO # 0.0 10^3/uL (0.0-0.2); BASO % 0.5 % (0.0-1.0); EOS # 0.1 10^3/uL (0.0-0.5); EOS % 1.2 % (0.0-3.0); LYMPH # 0.9 10^3/uL (1.5-5.0); LYMPH % 21.1 % (24.0-44.0); MONO # 0.4 10^3/uL (0.0-0.8); MONO % 9.7 % (2.0-8.0); NEUTROPHILS # 2.7 10^3/uL (1.5-8.5); NEUTROPHILS % 67.3 % (36.0-66.0); PLATELET COUNT, AUTOMATED 218 10^3/uL (150-450)
[2024-12-02 14:49] LABS: EBV AB TO NUCLEAR ANTIGEN > 600.00 U/mL (<18.00); EBV VIRAL CAPSID AG IGG 587.00 U/mL (<18.00); EBV VIRAL CAPSID AG IGM 151.00 U/mL (<36.00)
[2024-12-04 19:45] LABS: LYME TOTAL ANTIBODY CIA <= 0.90 Index (<=0.90)
== END ==
LOC: M LAB REF 11:46
PROVIDERS: ATTEND Physician Assistant
DX: R53.83 Other fatigue (principal)

== ENCOUNTER → 2025-03-08 | Outpatient (CLI) | payer MEDICARE ==
[2025-03-08 10:04] LABS: PLATELET COUNT, AUTOMATED 243 10^3/uL (150-450)
[2025-03-08 10:32] LABS: ALT/SGPT 27.0 U/L (7.0-40); AST/SGOT 26.0 U/L (<34); CALCIUM LEVEL 9.5 MG/DL (8.3-10.6); CARBON DIOXIDE LEVEL 30.0 MMOL/L (20-31); CHLORIDE LEVEL 103.0 MMOL/L (98-107); CHOLESTEROL LEVEL 174.0 MG/DL (<200); CHOLESTEROL RISK RATIO 3.57 (<5); CREATININE FOR GFR 0.81 MG/DL (0.55-1.30); GLOMERULAR FILTRATION RATE 79.5 (>45); LDL CHOLESTEROL 106.7 MG/DL (<100); NON-HDL-C 125.3 MG/DL; POTASSIUM SERUM 4.1 MMOL/L (3.5-5.1); SODIUM LEVEL 141.0 MMOL/L (136-145); TRIGLYCERIDES LEVEL 93.0 MG/DL (<150)
[2025-03-08 10:57] LABS: TOTAL 25(OH) VITAMIN D 32.5 NG/ML (20.0-100.0)
== END ==
LOC: M LAB 08:39
PROVIDERS: ATTEND Registered Nurse
DX: I10 Essential (primary) hypertension (principal); E78.00 Pure hypercholesterolemia, unspecified; E55.9 Vitamin D deficiency, unspecified

== ENCOUNTER → 2025-04-14 | Outpatient (CLI) | payer MEDICARE | LOC: M WHC 10:04 | PROVIDERS: ATTEND Registered Nurse | DX: Z12.31 Encounter for screening mammogram for malignant neoplasm of breast (principal); R92.323 Mammographic fibroglandular density, bilateral breasts ==